=== PATIENT | male | born 2000 ===

== ENCOUNTER 2022-08-25 19:12 | Emergency (ER) | payer OTHER, SELFPAY ==
--- NOTE | ~2022-08-25 | XR_ITS ---
EXAM: XR hand LT min 3V DATE: 08/25/2022 19:37 HISTORY: attn 4th digit, BRUISING AND SWELLING TO 4TH DIGIT . COMPARISON: None available. FINDINGS: Normal mineralization. Mildly comminuted, mildly displaced fracture of the left fourth pro ximal phalange. No lytic or blastic lesion. Joint spaces are maintained. No erosion or periosteal jessica nge. Soft tissues within normal limits. IMPRESSION: Mildly comminuted, mildly displaced fracture of the left fourth proximal phalange. Reviewed, dictated and finalized at location K. 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
[2022-08-25 19:20] VITALS: BP 113/86; PULSE 88; RESP 18; TEMP 37.3; O2SAT 100
--- NOTE | 2022-08-25 20:11 | ED.UPPEXIN ---
HPI - Extremity Injury (Upper) General Chief Complaint: Extremity Injury, Upper Stated Complaint: Finger injury Time Seen by Provider: 08/25/22 19:20 History of Present Illness HPI narrative: 21-year-old male presents emergency room for evaluation injury to his left fourth finger. Patient states just prior to arrival he was playing soccer with some friends when he tripped and fell landing on his hand. Noticed an obvious bony abnormality at the scene. Related Data Allergies Allergy/AdvReac Type Severity Reaction Status Date / Time No Known Allergies Allergy Verified 08/25/22 19:51 Review of Systems Review of Systems: CONSTITUTIONAL: Denies fever, chills, or sweats. EYES: Denies visual changes, redness, or discharge. ENT: Denies rhinorrhea, congestion, sore throat, or otalgia. CARDIOVASCULAR: Denies chest pain, palpitations, or edema. RESPIRATORY: Denies cough or dyspnea. GASTROINTESTINAL: Denies abdominal pain, nausea, vomiting, or diarrhea. GENITOURINARY: Denies dysuria or hematuria. SKIN: Denies rash or itching. MUSCULOSKELETAL: Reports left fourth digit pain NEUROLOGIC: Denies headache, numbness, dizziness, or weakness. PSYCHIATRIC: Denies anxiety or depression. Exam Narrative: GENERAL: Well-appearing, well-nourished, no physical limitations, and in no acute distress. HEAD: Normocephalic, atraumatic. EYES: Conjunctivae normal, PERRLA and EOMI. CHEST: Clear to auscultation. No respiratory distress. No wheezes rales or rhonchi. HEART: Regular rate and rhythm. No murmur heard. Normal peripheral pulses. EXTREMITIES: Left 4th finger: Obvious bony abnormality at the PIP joint. Tenderness over the proximal phalanx. Neurovascular is intact distally. Limited range of motion to the MCP and PIP joints SKIN: Warm, dry, no rash. No noted wounds NEURO: No focal deficits. Alert and oriented x3. MAEW. CN's II-XI intact bilaterally, normal gait PSYCH: Cooperative. Normal mood and affect. Course Vital Signs Vital signs: Vital Signs Temperature 37.3 C 08/25/22 19:20 Pulse Rate 88 08/25/22 19:20 Respiratory Rate 18 08/25/22 19:20 Blood Pressure 113/86 08/25/22 19:20 Pulse Oximetry 100 08/25/22 19:20 Oxygen Delivery Room Air 08/25/22 19:20 Temperature 37.3 C 08/25/22 19:20 Pulse Rate 88 08/25/22 19:20 Respiratory Rate 18 08/25/22 19:20 Blood Pressure 113/86 08/25/22 19:20 Pulse Oximetry 100 08/25/22 19:20 Oxygen Delivery Room Air 08/25/22 19:20 Discharge Plan Discharge Clinical Impression: Finger fracture, left Patient Disposition: Home, Self-Care Condition: Stable Instructions: Antibiotic Form, Finger Fracture (ED) Additional Instructions: Alternate Tylenol and ibuprofen as needed for discomfort. Follow-up/Referrals: Tito Delgado MD [Physician] - PHYSICIAN NOT ON STAFF,NONSTAFF [Primary Care Provider] - Luis Marie MD [Physician] - Time of Disposition: 20:14
[2022-08-25 20:19] VITALS: BP 118/78; PULSE 65; RESP 15; O2SAT 100
--- NOTE | 2022-09-03 19:21 | PC.NURSE ---
LATE ENTRY This note is being entered to document information to the patient's record. The following information was omitted on [08/25/2022], by [parisa graff]. finger splint applied to left fourth finger prior to discharge.
== END 2022-08-25 20:20 | disposition home or self-care (01) ==
PROVIDERS: Emergency Provider Nurse Practitioner Family
DX: S62.615A Displaced fracture of proximal phalanx of left ring finger, initial encounter for closed fracture (principal); W01.0XXA Fall on same level from slipping, tripping and stumbling without subsequent striking against object, initial encounter; Y93.66 Activity, soccer
CPT/HCPCS: 29130; 73130; 99283; 99284